=== PATIENT | female | born 1985 | race Caucasian/White ===

== ENCOUNTER 2017-07-07 08:06 | Inpatient (IN) | payer OTHER ==
[~2017-07-07] VITALS: Ht 170.2 cm; Wt 99.1 kg
--- NOTE | ~2017-07-07 | 2DMMODE ---
[facility] [address] [place] [address] 2 D/M-MODE ECHOCARDIOGRAM Name: NEIL RIZO Room #: 212-P ADM IN M.R.#: [id number] Admission: 07/07/17 Attend Phys: Michael Drake Discharge: Date of : 89 Date of Service: 07/08/17 1123 Report #: [id number] THIS REPORT FOR: //name// APPROVED REPORT Study performed: 07/08/2017 10:15:39 EXAM: Comprehensive 2D, Doppler, and color-flow Echocardiogram Patient Location: Echo lab Room #: [facility] Status: routine BSA: 2.09 HR: 70 bpm BP: 127/86 mmHg Rhythm: NSR Other Information Study Quality: Good Indications Chest Pressure Non STEMI Chest pain, elevated troponin. Hx: obesity, tobacco abuse. 2D Dimensions RVDd: 37.40 mm LVEF(%): 44.32 (>50%) IVSd: 7.33 (7-11mm) LVOT Diam: 19.80 (18-24mm) LVDd: 55.39 mm PWd: 9.58 (7-11mm) Ascending Ao: 27.45 (22-36mm) LVDs: 43.08 (25-40mm) Aortic Root: 30.73 mm Mckeon's LVEF: 44.32 % Volumes Left Atrial Volume (Systole) Single Plane 4CH: 45.97 mL Single Plane 2CH: 36.54 mL LA ESV Index: 21.00 mL/m2 Aortic Valve AoV Peak Glynn.: 1.31 m/s AO Peak Gr.: 6.84 mmHg LVOT Max P.71 mmHg LVOT Max V: 1.09 m/s ISMAEL Vmax: 2.55 cm2 Mitral Valve [facility] [address] [place] [address] 2 D/M-MODE ECHOCARDIOGRAM Name: NEIL RIZO Room #: 212-[facility] IN ..#: [id number] Admission: 07/07/17 Attend Phys: Michael Drake Discharge: Date of : 89 Date of Service: 07/08/17 1123 Report #: [id number] E/A Ratio: 1.9 MV Decel. Time: 125.07 ms MV E Max Glynn.: 0.85 m/s MV A Glynn.: 0.44 m/s MV PHT: 36.27 ms IVRT: 89.97 ms Pulmonary Valve PV Peak Glynn.: 1.13 m/s PV Peak Gr.: 5.09 mmHg Pulmonary Vein P Vein S: 0.39 m/s P Vein D: 0.29 m/s P Vein S/D Ratio: 1.34 Tricuspid Valve TR Peak Glynn.: 2.49 m/s RAP Estimate: 5.00 mmHg TR Peak Gr.: 24.77 mmHg PA Pressure: 30.00 mmHg Left Ventricle The left ventricle is normal size. Wall motion abnormalities are noted. There is normal left ventricular wall thickness. Left ventricular systolic function is moderately decreased. LVEF is 35-40%. The left ventricular diastolic function is normal. Right Ventricle The right ventricle is normal size. The right ventricular systolic function is normal. Atria The left atrium size is normal. The right atrium size is normal. Aortic Valve The aortic valve is normal in structure. No aortic regurgitation is present. There is no aortic valvular stenosis. Mitral Valve The mitral valve is normal in structure. Trace to mild mitral regurgitation. Tricuspid Valve The tricuspid valve is normal in structure. Trace to mild tricuspid regurgitation. Estimated PAP is 30mmHg. [facility] [address] [place] [address] 2 D/M-MODE ECHOCARDIOGRAM Name: NEIL RIZO Room #: 212-P [facility] IN ..#: [id number] Admission: 07/07/17 Attend Phys: Michael Drake Discharge: Date of : 89 Date of Service: 07/08/17 1123 Report #: [id number] Pulmonic Valve The pulmonary valve is normal in structure. Mild pulmonic regurgitation. Great Vessels The aortic root is normal in size. The ascending aorta is normal in size. IVC is normal in size and collapses >50% with inspiration. Pericardium There is no pericardial effusion. <Conclusion> The left ventricle is normal size. LVEF is 35-40%. The aortic valve is normal in structure. The mitral valve is normal in structure. Trace to mild mitral regurgitation. The tricuspid valve is normal in structure. Trace to mild tricuspid regurgitation. Estimated PAP is 30mmHg. The pulmonary valve is normal in structure. Mild pulmonic regurgitation. There is no pericardial effusion. <ELECTRONICALLY SIGNED> By: Seth Campos MD 07/08/17 1123 1123 112 Seth Campos MD /INF
--- NOTE | ~2017-07-07 | CATHLAB ---
[facility] [address] [place] [address] INVASIVE PROCEDURE REPORT Name: NEIL RIZO Room #: 212-P ADM IN M.R.#: [id number] Admission: 07/07/17 Attend Phys: Michael Drake Discharge: Date of : 89 Date of Service: 07/08/17 1459 Report #: [id number] THIS REPORT FOR: //name// APPROVED REPORT Study performed: 07/08/2017 12:04:44 Patient Details Patient Status: In-Patient Room #: 212 The patient is a 32 year-old female Event Personnel Seth Campos Heel Layer, Marianne Nolasco RTMervin, A P SUPERVISOR Monitor, Eliazar Liu Knisely, Ceola RN school bus driver Performed Art Access - R femoral artery* 74619 Initial Mod Sed Same Phys/QHP Gr5y 886891 17784 Mod Sed Same Phys/QHP Ea 490497 Left Heart Cath w/or w/o Coronaries [id number] [facility] [place] Place w/wo Plasty Single LAD 078610 Hemostasis w/ Mynx, supervision of conscious sedation Indication STEMI (>12 hrs to = 24 hrs) Risk Factors Family History, Hypercholesterolemia Procedure Narrative The Right Groin^ was infiltrated with 1% Lidocaine subcutaneous anesthesia. A PINNACLE 4FR Sheath #[id number] sheath was inserted into the RFA^. Coronary angiography was performed using coronary diagnostic catheters. The right coronary system was accessed and visualized with a JR4 catheter. The left coronary system was accessed and visualized with a JL4 catheter. The left ventricle was accessed and visualized with a JR4 catheter. Left ventricular/Aortic Valve gradient assessed . Closure device was deployed with a 6 Fr MYNXGRIP 6/7F #[id number]. The patient tolerated the procedure well and there were no complications associated with the procedure. There was no hematoma. Intraoperative Conscious Sedation Sedation start time: 12:11 Case end Time: 12:51 Versed 4 mg [facility] [address] [place] [address] INVASIVE PROCEDURE REPORT Name: NEIL RIZO Room #: 212-P [facility] IN .R.#: [id number] Admission: 07/07/17 Attend Phys: Michael Drake Discharge: Date of : 89 Date of Service: 07/08/17 1459 Report #: [id number] Fluoro Time: 10.60 minutes Dose: DAP 8871.70 cGycm2 1338 mGy Contrast Type and Amount: Omnipaque 200 ml Coronary Angiography The patient's coronary anatomy is right dominant. Diagnostic Cath Left Main Normal origin and moderate caliber which is long in length bifurcates into left anterior descending and left circumflex coronary artery. LAD A vessel which arises and courses in the anterior interventricular sulcus tapering rapidly towards the apex. In its proximal portion there is an eccentric 90-95% lesion noted with what appears to be some degree of thrombus and possibly a spontaneous dissection. Flow through this vessel is brisk and the lesion itself terminates prior to the origin of the first diagonal branch which is a moderate caliber vessel. Diagonal 1 Moderate caliber vessel with no significant obstructive lesion coursing in to the lateral wall tapering rapidly towards its and Circumflex Moderate caliber vessel normal origin and gives rise to a moderate early marginal branch free of high-grade disease is recorded on the lateral aspect of the heart. The circumflex proper then continues on a short distance and gives rise to a small posterior wall branch and terminates as a small posterior wall terminal branch. No significant obstructive lesions are noted OM1 Moderate caliber vessel free of high-grade disease Right Coronary Normal origin and moderate to large caliber versus small RV marginal branches. Then continues to the crux of the hardware posterior descending artery originates and then terminates as a small posterior wall branch R PDA Moderate caliber rapidly tapering and bifurcating vessel free of high-grade disease Left Ventriculography Left Ventriculography was not performed. Hemodynamics The aortic pressure is 122/80 mmHg with a mean of 100 mmHg. The left ventricular pressure is 134/14 mmHg with a mean of mmHg. The left ventricular end diastolic pressure is 35 mmHg. PCI Technique The diagnostic catheters and exchanged for a standard left L4 guide [facility] [address] [place] [address] INVASIVE PROCEDURE REPORT Name: NEIL RIZO Room #: 212-P [facility] IN M.R.#: [id number] Admission: 07/07/17 Attend Phys: Michael Drake Discharge: Date of : 89 Date of Service: 07/08/17 1459 Report #: [id number] which was too large and was exchanged for a 3.5. This was engaged with a left coronary ostium without difficulty. Utilizing a 14 wire was advanced into the distal LAD. Numerous guiding shots were obtained and 1.5 mm balloon was then utilized. Mood was clearly undersized and was taken to 12 aaron which is 1.7 mm in diameter which is still significantly in size. Subsequent to this a 2.25 Medtronic DEN[place] 22 millimeter stent was positioned and deployed across the lesion and across the first diagonal branch which had no significant ostial lesion. The vessel is widely patent flow was improved. Dorsalis of intercoronary nitroglycerin were given prior to deployment and after Subsequent to post-stent dilatation and stent deployment angiography was performed with satisfactory results wire and guide were removed. Puncture site was closed with a minx device without complications. Patient tolerated procedure well PCI Technique Lesion Anticoagulation was achieved with Angiomax. Percutaneous coronary intervention was performed on the proximal left anterior descending artery segment. The lesion stenosis prior to intervention was 95% with SHARA 1 flow. A LAUNCHER 6FR JL3.5 #[id number] Guide Catheter was used to engage the LCA ostium. A Luge Wire (J) .014 X 182CM #[id number] Interventional Guidewire was used to cross the lesion. BALLOON DILATION A Balloon catheter Sprinter OTW 1.5 x 20 #[id number] was inserted and inflated up to 12.00atm for 28seconds. Repeat angiography revealed the following post-dilatation results: improved flow through that significant residual stenosis noted. Additional Inflation: 12.00atm for 8seconds. STENT DEPLOYMENT A drug-eluting stent RESOLUTE OTW 2.25 X 22 #[id number] was inserted and inflated up to 8.00atm for 8seconds. Repeat angiography revealed the following post-stent deployment results: widely patent vessel with SHARA-3 flow. Additional Inflation: 10.00atm for 8seconds. Conclusion 1. Coronary disease single vessel involving the proximal LAD 2. Normal hemodynamics the left ventricle end-diastolic pressures of under 20 3. Successful presidents revascularization with a 2.25 mm x 22 mm DENNYS stent placed in the proximal LAD and inflated to 10 aaron [facility] [address] [place] [address] INVASIVE PROCEDURE REPORT Name: NEIL RIZO Room #: 212-P ADM IN M.R.#: [id number] Admission: 07/07/17 Attend Phys: Michael Drake Discharge: Date of : 89 Date of Service: 07/08/17 1459 Report #: [id number] Recommendations Cardiac Risk Reduction Program Aggressive Medical Therapy Medications Administered Ticagrelor <ELECTRONICALLY SIGNED> By: Seth Campos MD 07/08/17 1459 1459 58 Seth Campos MD /INF
--- NOTE | ~2017-07-07 | EKG ---
[place] [address] [address] ELECTROCARDIOGRAM REPORT Name: SALLIENEIL MCPHERSON Room #: 212-P ADM IN M.R.#: [id number] Admission: 07/07/17 Attend Phys: Michael Espana Discharge: Date of : 89 Report #: [id number] THIS REPORT FOR: //name// [facility] ED Test Date: 2017-07-07 Test Time: 08:21:16 Pat Name: NEIL RIZO Department: Room: Gender: F Home Manager: EVELYN : 1985 Requested By: Jason Stewart Order Number: [id number] MD: Jared Downing Measurements Intervals [place] Rate: 80 P: 11 SC: 143 QRS: 14 QRSD: 80 T: -45 QT: 371 QTc: 428 Interpretive Statements Sinus rhythm Ventricular premature complex Repol abnrm suggests ischemia, inferior leads Borderline ST elevation, anterior leads No previous ECG available for comparison Electronically Signed On 07-07-2017 19:52:52 CDT by Jared Downing [email or web address] <ELECTRONICALLY SIGNED> By: Jared Downing MD 07/07/171951 0 0 Jared Downing MD /MIRANDA
--- NOTE | ~2017-07-07 | EKG ---
[address] [place] [address] ELECTROCARDIOGRAM REPORT Name: RIZONEIL [place] Room #: 212-P ADM IN M.R.#: [id number] Admission: 07/07/17 Attend Phys: Michael Espana Discharge: Date of : 89 Report #: [id number] THIS REPORT FOR: //name// [facility] ED Test Date: 2017-07-07 Test Time: 09:18:42 Pat Name: NEIL RIZO Department: Room: Gender: F Chain Maker: at : 1985 Requested By: Jason Stewart Order Number: [id number] MD: Jared Downing Measurements Intervals [place] Rate: 76 P: 2 MT: 140 QRS: 6 QRSD: 79 T: -61 QT: 370 QTc: 417 Interpretive Statements Sinus rhythm Low voltage, precordial leads Abnormal Q suggests anterior infarct Repol abnrm suggests ischemia, diffuse leads Borderline ST elevation, anterior leads No previous ECG available for comparison Electronically Signed On 07-07-2017 19:53:30 CDT by Jared Downing [email or web address] <ELECTRONICALLY SIGNED> By: Jared Downing MD 07/07/171952 7 7 Jared Downing MD /MIRANDA
[~2017-07-07 08:06] MED LIST: ADVIL200 MG PO; CIPROFLOXACIN500 M1 PO; IBUPROFEN 600600 M1 PO; LORTAB 5 MG/5001 TAB PO; NORCO 5-325 TA1 EACH PO; NYQUIL D COLD295 ML PO; ZOFRAN ODT4 MG PO; [UNRECOGNIZED DRUG - OTHER] PO
[2017-07-07 08:09] VITALS: BP 118/98
[2017-07-07 08:32] LABS: ABSOLUTE NEUTROPHILS 7.9 thou/uL (1.4-8.2); BASOPHILS 1.1 % (0.0-2.0); EOSINOPHILS 1.7 % (0.0-3.0); HEMATOCRIT 41.5 % (37.0-47.0); HEMOGLOBIN 14.1 gm/dL (12.0-15.0); LYMPHOCYTES 23.4 % (24.0-44.0); MCH 27.3 pg (26.0-34.0); MCHC 34.1 g/dL (28.0-37.0); MCV 80.3 fL (80.0-100.0); MONOCYTES 5.9 % (1.0-8.0); PLATELET COUNT 409 thou/uL (150-400); POLYS 67.9 % (36.0-66.0); RBC 5.17 mil/uL (4.20-5.00); RDW 14.6 % (10.5-14.5); WBC 11.7 thou/uL (4.0-11.0)
[2017-07-07 08:39] LABS: CALCIUM 9.5 mg/dL (8.5-10.1); CREATININE 1.1 mg/dL (0.6-1.0); POTASSIUM 3.1 mmol/L (3.5-5.1)
[2017-07-07 08:48] LABS: TROPONIN-I 0.09 ng/mL (<0.06)
[2017-07-07 10:47] LABS: CHOLESTEROL 229 mg/dL (<200); HDL CHOLESTEROL 32 mg/dL (>40); LDL CHOLESTEROL 155 mg/dL (<100); TC:HDL 7.2 Ratio (Not establshd); TRIGLYCERIDE 211 mg/dL (<150); VLDL 42 mg/dL (<40)
[2017-07-07 11:00] VITALS: BP 125/71
[2017-07-07 11:38] VITALS: BP 119/62
[2017-07-07 11:59] VITALS: BP 123/82
[2017-07-07 15:26] VITALS: BP 130/81
[2017-07-07 19:55] VITALS: BP 135/91
[2017-07-08] VITALS (7 sets, daily range): BP systolic 113–127; BP diastolic 61–86
[2017-07-08 01:28] LABS: URINE BILIRUBIN NEGATIVE (Negative); URINE BLOOD NEGATIVE (Negative); URINE CLARITY CLEAR; URINE COLOR YELLOW; URINE GLUCOSE-RANDOM* NEGATIVE (Negative); URINE KETONES NEGATIVE (Negative); URINE LEUKOCYTES NEGATIVE (Negative); URINE NITRITE NEGATIVE (Negative); URINE PROTEIN (DIPSTICK) NEGATIVE (Negative); URINE SPECIFIC GRAVITY <= 1.005 (1.005-1.035); URINE UROBILINOGEN 0.2 E.U./dl (0.2-1.0)
[2017-07-08 01:36] LABS: AMP/METHAMP Negative (Negative); BARBITURATES Negative (Negative); BENZODIAZEPINES Negative (Negative); COCAINE Negative (Negative); METHADONE Negative (Negative); OPIATES Negative (Negative); PCP Negative (Negative)
[2017-07-09 02:52] LABS: HEMATOCRIT 35.1 % (37.0-47.0); MCHC 33.2 g/dL (28.0-37.0); MCV 81.2 fL (80.0-100.0); RBC 4.33 mil/uL (4.20-5.00); RDW 13.9 % (10.5-14.5); WBC 9.5 thou/uL (4.0-11.0)
[2017-07-09 02:58] LABS: HEMOGLOBIN 11.7 gm/dL (12.0-15.0)
[2017-07-09 03:07] LABS: ALBUMIN 3.2 g/dL (3.4-5.0); CALCIUM 8.2 mg/dL (8.5-10.1); CREATININE 0.9 mg/dL (0.6-1.0); PHOSPHORUS 3.1 mg/dL (2.5-4.9); POTASSIUM 3.9 mmol/L (3.5-5.1); TOTAL BILIRUBIN 0.4 mg/dL (<0.1-1.0); TOTAL PROTEIN 6.1 g/dL (6.4-8.2)
[2017-07-09 04:00] VITALS: BP 149/80
[2017-07-09 07:27] VITALS: BP 121/83
[2017-07-09] MEDS ORDERED: LIPITOR 20 MG T20 M1 PO (08:34)
[2017-07-09] MEDS ORDERED: COREG6.25 MG PO (08:34)
[2017-07-09] MEDS ORDERED: BRILINTA90 MG PO (08:34)
[2017-07-09] MEDS ORDERED: ASPIR 8181 MG PO (08:35)
[2017-07-09] MEDS ORDERED: LISINOPRIL2.5 MG PO (08:35)
[2017-07-09 11:22] VITALS: BP 111/77
[2017-07-09 14:24] VITALS: BP 111/77
== END 2017-07-09 14:45 | disposition home or self-care (01) | DRG 247 ==
LOC: ER 08:06 → EROBS 10:39 → 2N 10:39
PROVIDERS: Emergency Medicine; Hospitalist; Internal Medicine
PROC: 4A023N7 Measurement of Cardiac Sampling and Pressure, Left Heart, Percutaneous Approach (ICD-10-PCS; principal; 2017-07-09)
PROC: 027034Z Dilation of Coronary Artery, One Artery with Drug-eluting Intraluminal Device, Percutaneous Approach (ICD-10-PCS; principal; 2017-07-09)
PROC: B2111ZZ Fluoroscopy of Multiple Coronary Arteries using Low Osmolar Contrast (ICD-10-PCS; principal; 2017-07-09)
DX: I21.4 Non-ST elevation (NSTEMI) myocardial infarction (principal); I42.9 Cardiomyopathy, unspecified; F17.210 Nicotine dependence, cigarettes, uncomplicated; G89.4 Chronic pain syndrome; Z88.8 Allergy status to other drugs, medicaments and biological substances; Z79.899 Other long term (current) drug therapy; Z88.6 Allergy status to analgesic agent
CPT/HCPCS: 10081

== ENCOUNTER 2021-02-16 05:57 | Emergency (ER) | payer OTHER ==
[~2021-02-16] VITALS: Ht 170.2 cm; Wt 78.9 kg
[~2021-02-16 05:57] MED LIST changes: +ASPIR 8181 MG PO; +BRILINTA90 MG PO; +COREG6.25 MG PO; +LIPITOR 20 MG T20 M1 PO; +LISINOPRIL2.5 MG PO
[2021-02-16 06:03] VITALS: BP 140/75
[2021-02-16 07:03] LABS: ABSOLUTE NEUTROPHILS 5.9 thou/uL (1.4-8.2); BASOPHILS 0.6 % (0.0-2.0); EOSINOPHILS 1.9 % (0.0-3.0); HEMATOCRIT 40.8 % (37.0-47.0); HEMOGLOBIN 13.6 gm/dL (12.0-15.0); LYMPHOCYTES 13.1 % (24.0-44.0); MCH 29.5 pg (26.0-34.0); MCHC 33.4 g/dL (28.0-37.0); MCV 88.4 fL (80.0-100.0); MONOCYTES 5.7 % (1.0-8.0); PLATELET COUNT 282 thou/uL (150-400); POLYS 78.7 % (36.0-66.0); RBC 4.61 mil/uL (4.20-5.00); RDW 13.6 % (10.5-14.5); WBC 7.5 thou/uL (4.0-11.0)
[2021-02-16 07:15] LABS: CALCIUM 8.6 mg/dL (8.5-10.1); CREATININE 0.8 mg/dL (0.6-1.0); POTASSIUM 3.9 mmol/L (3.5-5.1)
[2021-02-16 07:17] LABS: URINE BILIRUBIN NEGATIVE (Negative); URINE BLOOD TRACE (Negative); URINE CLARITY SL CLOUDY; URINE GLUCOSE-RANDOM* NEGATIVE (Negative); URINE KETONES NEGATIVE (Negative); URINE LEUKOCYTES-REFLEX NEGATIVE (Negative); URINE PROTEIN (DIPSTICK) NEGATIVE (Negative); URINE SPECIFIC GRAVITY >= 1.030 (1.005-1.035); URINE UROBILINOGEN 0.2 E.U./dl (0.2-1.0)
[2021-02-16 07:19] LABS: URINE COLOR YELLOW3; URINE NITRITE-REFLEX POSITIVE (Negative)
[2021-02-16 07:20] LABS: ALBUMIN 3.6 g/dL (3.4-5.0); TOTAL BILIRUBIN 0.2 mg/dL (0.2-1.0); TOTAL PROTEIN 6.4 g/dL (6.4-8.2)
[2021-02-16 07:28] LABS: SQUAMOUS 4-10 Moderate /LPF (0-3)
[2021-02-16 07:31] LABS: BACTERIA-REFLEX >30 Many /HPF (None Seen); CASTS None Seen /LPF (None Seen); CRYSTALS None Seen /LPF (None Seen); URINE RBC 1-2 Rare /HPF (NONE SEEN); URINE WBC-REFLEX 0-5 Rare /HPF (0-5)
[2021-02-16] MEDS ORDERED: METRONIDAZOLE500 M4 PO (08:40)
[2021-02-16] MEDS ORDERED: MACROBID 100 M100 M2 PO (08:40)
== END 2021-02-16 08:41 | disposition home or self-care (01) ==
LOC: ER 05:57
PROVIDERS: Emergency Medicine
DX: N76.0 Acute vaginitis (principal); B96.89 Other specified bacterial agents as the cause of diseases classified elsewhere; N94.89 Other specified conditions associated with female genital organs and menstrual cycle; N39.0 Urinary tract infection, site not specified; F17.210 Nicotine dependence, cigarettes, uncomplicated; Z98.890 Other specified postprocedural states; Z79.82 Long term (current) use of aspirin; Z79.899 Other long term (current) drug therapy; Z88.1 Allergy status to other antibiotic agents; Z88.5 Allergy status to narcotic agent